=== PATIENT | female | born 1965 | race African-American/Black ===

== ENCOUNTER → 2016-06-21 | Outpatient (CLI) | payer BC, OTHER ==
[~2016-06-21] MED LIST: BACTRIM DS TABL1 TA1 PO; BACTRIM DS TABL1 TA2 PO; CENTRUM PO; FLEXERIL PO; FLEXERIL10 M1 PO; IBUPROFEN PO; KCL PO; MULTI-VITAMIN1 TAB PO; NAPROSYN500 MG PO; NAPROXEN PO; OYSTER CALCIUM500 MG PO; PHENERGAN W/CO120 ML PO; PRILOSEC20 M1 PO; SUDAFED30 M1 PO; VITAMIN D PO; ZITHROMAX1 G/PKT PO
--- NOTE | ~2016-06-21 | CT2 ---
[facility] A Service of [facility] RADIOLOGY TEXT RESULTS PATIENT: DA DALLAS LOCATION: [facility] : 65 UNIT #: [id number] AGE: [address]: Whitney Chua MD SEX: F ORDER DR: [id number] [address] [address] [id number] O MR#: [id number] Acc #: [id number] NAME: DA DALLAS. : 1965 SEX: F STUDY DATE/TIME: 06/21/2016 11:33 UNIT: [facility] ROOM: STUDY DESCRIPTION: CT Abd and Pelv W Cont Attending Physician: Whitney Chua M.D. Referring Physician: Whitney Chua M.D. Ordering Physician: Whitney Chua M.D. Primary Care Physician: Whitney Chua M.D. MEDICAL IMAGING REPORT This report is preliminary unless electronic signature is present. EXAM Abdomen and pelvis CT with contrast 06/21/2016 INDICATIONS Left lower quadrant pain since the 28 of May and nausea in a 51-year-old female. Possible flu pelvic pain, diarrhea and dizziness. TECHNIQUE Contrast-enhanced abdomen and pelvis CT was performed. This CT exam was performed with one or more of the following radiation dose reduction techniques: automatic control, adjustment of mA and/or kV according to patient size, and iterative reconstruction. COMPARISON 06/25/[address] ABDOMEN: Included lung bases are clear. No pleural or pericardial effusion aorta demonstrates no aneurysm no dissection. Spleen adrenal glands and pancreas are unremarkable. Gallbladder unremarkable. There is mild fatty infiltration of the liver. Kidneys are unremarkable. Incidental angiomyolipoma associated with the anterior margin of the mid pole right kidney measures 5 mm unchanged. No adenopathy. CT PELVIS: Bladder unremarkable. No adnexal mass, free fluid or drainable fluid collection in the pelvis. Bowel unremarkable. Appendix normal. Inguinal canals are unremarkable. There is no suspicious bone lesion. There are degenerative changes in the lumbar spine related to facet arthropathy with new vacuum changes on the right at L5-S1. Similar findings to a lesser extent on the left. [facility] A Service of [facility] RADIOLOGY TEXT RESULTS PATIENT: DA DALLAS LOCATION: [facility] : 65 UNIT #: [id number] AGE: [address]: Whitney Chua MD SEX: F ORDER DR: IMPRESSION 1. No clearly acute process in the abdomen or pelvis. No bowel obstruction drainable fluid collection or focal area of inflammatory change. Appendix normal. 2. Incidental fatty infiltration of the liver. 3. Benign angiomyolipoma right kidney measures 5 mm. 4. Interval progression of degenerative change at L5-S1 related to facet arthropathy, right greater than left. Dictated by... Freeman Adams M.D. THIS IS AN ELECTRONICALLY VERIFIED REPORT Freeman Adams M.D. at 06/22/2016 10:37 AM AKANKSHA/maggie TD: 06/21/2016 22:31 JOB #: [id number] MEDICAL IMAGING REPORT Page 1 of 1
[2016-06-21 11:30] LABS: POC - CREATININE 0.73 mg/dL (0.44-1.03); POC - GFR >60.0 mL/min (>60)
== END | disposition home or self-care (01) ==
LOC: SCT 10:45
PROVIDERS: Family Medicine
DX: R10.32 Left lower quadrant pain (principal); R19.7 Diarrhea, unspecified; R10.2 Pelvic and perineal pain; N94.9 Unspecified condition associated with female genital organs and menstrual cycle; D17.71 Benign lipomatous neoplasm of kidney; M47.817 Spondylosis without myelopathy or radiculopathy, lumbosacral region; M46.97 Unspecified inflammatory spondylopathy, lumbosacral region
CPT/HCPCS: 74177; 82565; Q9967